=== PATIENT | male | born 1985 | race Caucasian/White ===

== ENCOUNTER 2019-05-19 21:38 | Emergency (ER) | payer SELFPAY ==
[~2019-05-19] VITALS: Ht 182.9 cm; Wt 116.1 kg
[2019-05-19 21:42] VITALS: Ht 182.9 cm; Wt 116.1 kg
[2019-05-19 22:32] LABS: BASOPHIL % 1.1 % (0-2); PLATELET COUNT 337 x10^3mcL (130-400); RED CELL DISTRIBUTION WIDTH 13.1 % (11.5-14.5)
[2019-05-19 22:33] LABS: microscopic required? NO
[2019-05-19 22:55] LABS: CALCIUM 8.2 mg/dL (8.5-10.1); CARBON DIOXIDE 27.6 mmol/L (21-32); CHLORIDE SERUM 102 mmol/L (98-107); CREATININE SERUM 0.9 mg/dL (0.7-1.3); GFR1 > 60 mL/min; GLUCOSE SERUM 112 mg/dL (74-106); POTASSIUM SERUM 3.4 mmol/L (3.5-5.1); SODIUM SERUM 141 mmol/L (136-145)
[2019-05-19 23:07] LABS: ALBUMIN 3.9 g/dL (3.4-5.0); ALKALINE PHOSPHATASE 91 U/L (46-116); ALT/SGPT 87 U/L (16-63); AMYLASE 44 U/L (25-115); AST/SGOT 45 U/L (15-37); BILIRUBIN TOTAL 0.3 mg/dL (0.20-1.00); HDL CHOLESTEROL 52 mg/dL (40-60); LIPASE 95 IU/L (73-393); MAGNESIUM 1.9 mg/dL (1.8-2.4)
[2019-05-19 23:16] LABS: urine erythrocyte NEGATIVE (NEGATIVE)
[2019-05-19 23:18] LABS: TOTAL PROTEIN, SERUM 7.6 g/dL (6.4-8.2)
[2019-05-19 23:22] LABS: CHOLESTEROL 287 mg/dL (<200)
[2019-05-19 23:26] LABS: AMPHETAMINE QUAL UR NONE DETECTED (See below)
[2019-05-20 01:45] VITALS: BP 152/98
== END 2019-05-20 01:48 | disposition home or self-care (01) ==
LOC: ED 21:38
PROVIDERS: Emergency Medicine
DX: E87.6 Hypokalemia (principal); R42 Dizziness and giddiness; R07.89 Other chest pain; F10.129 Alcohol abuse with intoxication, unspecified; E66.9 Obesity, unspecified; Z68.34 Body mass index [BMI] 34.0-34.9, adult; Y90.6 Blood alcohol level of 120-199 mg/100 ml
CPT/HCPCS: 82962; 83880; G0480; J3411; J3475; J3490; J7030; J7042; J8597